=== PATIENT | male | born 2000 | race Caucasian/White ===

== ENCOUNTER → 2024-01-24 | Outpatient (CLI) | payer BC | LOC: RAD 08:38 | DX: K82.9 Disease of gallbladder, unspecified (principal) ==

== ENCOUNTER → 2024-01-29 | Outpatient (CLI) | payer BC ==
[2024-01-29 10:28] LABS: TOTAL BILIRUBIN 5.4 mg/dL (0.2-1.2)
[2024-01-29 10:31] LABS: DIRECT BILIRUBIN 0.3 mg/dL (0.0-0.5)
[2024-01-30 10:21] LABS: ANA SCREEN with REFLEX Negative (Negative)
== END ==
LOC: LAB 10:02
PROVIDERS: Family Medicine
DX: R10.11 Right upper quadrant pain (principal)

== ENCOUNTER → 2024-02-09 | Outpatient (CLI) | payer BC ==
[2024-02-09 13:55] LABS: TOTAL BILIRUBIN 2.5 mg/dL (0.2-1.2)
== END ==
LOC: LAB 13:28
PROVIDERS: Family Medicine
DX: E80.6 Other disorders of bilirubin metabolism (principal)

== ENCOUNTER → 2024-02-21 | Outpatient (CLI) | payer BC | LOC: LAB 16:41 | DX: E80.6 Other disorders of bilirubin metabolism (principal) ==